=== PATIENT | female | born 1975 | race African-American/Black ===

== ENCOUNTER 2017-11-16 15:31 | Emergency (ER) | payer SELFPAY ==
[2017-11-16] MEDS: HYDROcodone/APAP 10/325 1 TAB TABLET PO ×2 (17:46)
== END 2017-11-16 18:27 | disposition home or self-care (01) ==
LOC: ER 15:31
DX: S16.1XXA Strain of muscle, fascia and tendon at neck level, initial encounter (principal); S20.222A Contusion of left back wall of thorax, initial encounter; S20.221A Contusion of right back wall of thorax, initial encounter; S80.02XA Contusion of left knee, initial encounter; E11.9 Type 2 diabetes mellitus without complications; I10 Essential (primary) hypertension; K21.9 Gastro-esophageal reflux disease without esophagitis; F12.10 Cannabis abuse, uncomplicated; Z88.8 Allergy status to other drugs, medicaments and biological substances; V43.52XA Car driver injured in collision with other type car in traffic accident, initial encounter; Y93.I9 Activity, other involving external motion; Y92.410 Unspecified street and highway as the place of occurrence of the external cause; Y99.8 Other external cause status
CPT/HCPCS: 72125; 72128; 73564; 99284-25

== ENCOUNTER 2018-12-09 21:30 | Emergency (ER) | payer OTHER ==
[~2018-12-09] VITALS: Ht 154.9 cm; Wt 106.6 kg
[~2018-12-09 21:30] MED LIST: AMLO10TA8 PO; CYCL10TA2 PO; CYCL5TAB PO; HYDR-3164 PO; IBUP-1007 PO; METF500T16 PO; SERT50TA8 PO; TRAZ-86 PO
--- NOTE | 2018-12-09 22:15 | PHYS DOC ---
Past Medical History Past Medical History: Diabetes-Type II, Hypertension, Other Additional Past Medical Histor: MULTIPLE ALLERGIC REACTIONS WITH FACIAL SWELLING Past Surgical History: Additional Past Surgical Histo: BREAST REDUCTION, SWEAT GLANDS REMOVED Alcohol Use: None Drug Use: Marijuana Social History Narrative: SMOKED MARIJUANA TODAY Adult General Chief Complaint Chief Complaint: ALLERGIC REACTION HPI HPI Patient is a 43 year old pleasant female who presents with facial swelling confined to the upper lip. Her airway is patent and she is breathing easily and able to hold a conversation and denies any shortness of breath or throat tightness. Pt reports taking xanoflex around 4-5 am (12/09/18), a pill she has never taken before, and started to notice lip "tingling" around 1230 p when she was driving her daughter to dance practice. It started to swell and pt took a benadryl with no relief. It is progressively swelling and is now becoming painful per pt, rating the pain a 7/10. She has had problems like this in the past to Lisinopril and carvedilol which responded to epinephrine, methylprednisone, and famotidine. She denies CP, SOA, n/v, DANG, cough, back pain , and bowel/bladder changes. She also notes her father experienced similar symptoms throughout his life. Review of Systems Review of Systems Constitutional: Denies fever or chills Eyes: Denies change in visual acuity, redness, or eye pain HENT: Denies nasal congestion or sore throat, admits to facial pain localized to upper lip. Respiratory: Denies cough or shortness of breath Cardiovascular: No additional information not addressed in HPI GI: Denies abdominal pain, nausea, vomiting, bloody stools or diarrhea : Denies dysuria or hematuria Musculoskeletal: Denies back pain or joint pain Integument: Denies rash or skin lesions Neurologic: Denies headache, focal weakness or sensory changes All other systems were reviewed and found to be within normal limits, except as documented in this note. Current Medications Current Medications Current Medications Medications (Trade) Dose Ordered Sig/Kim Start Time Stop Time Status Last Admin Dose Admin Amlodipine Besylate (Norvasc) 10 mg 1X ONCE 12/09/18 22:30 12/09/18 22:31 DC 12/09/18 22:32 10 MG Famotidine (Pepcid Vial) 20 mg 1X ONCE 12/09/18 22:30 12/09/18 22:31 DC 12/09/18 22:31 20 MG Methylprednisolone Sodium Succinate (SOLU-Medrol 125MG VIAL) 125 mg 1X ONCE 12/09/18 22:30 12/09/18 22:31 DC 12/09/18 22:31 125 MG Allergies Allergies Allergies Coded Allergies Type Severity Reaction Last Updated Verified SMITH Inhibitors Allergy Intermediate Swelling 03/16/16 Yes carvedilol Allergy Intermediate Swelling 03/16/16 Yes lisinopril Allergy Intermediate 03/16/16 Yes Physical Exam Physical Exam Constitutional: Well developed, well nourished, no acute distress, non-toxic appearance. Pleasant woman who can easily hold a conversation. HENT: Swelling localized to upper lip, no swelling appreciated in the lower lip , perioral region, or the face. Normocephalic, atraumatic, bilateral external ears normal, oropharynx moist, no oral exudates, nose normal. [] Eyes: PERRLA, EOMI, conjunctiva normal, no discharge. Neck: Normal range of motion, no tenderness, supple, no stridor. Cardiovascular:Heart rate regular rhythm, no murmur Lungs & Thorax: Bilateral breath sounds clear to auscultation. Able to move air easily. Abdomen: Bowel sounds normal, soft, no tenderness, no masses, no pulsatile masses. Skin: Warm, dry, no erythema, no rash. Back: No tenderness, no CVA tenderness. Extremities: No tenderness, no cyanosis, no clubbing, ROM intact, no edema. Neurologic: Alert and oriented X 3, normal motor function, normal sensory function, no focal deficits noted. Psychologic: Affect normal, judgement normal, mood normal. Current Patient Data Vital Signs Vital Signs Date Time Temp Pulse Resp B/P (MAP) Pulse Ox O2 Delivery O2 Flow Rate FiO2 12/09/18 23:40 82 16 158/102 (120) 100 Room Air 12/09/18 21:45 98.5 98.5 EKG EKG [] Radiology/Procedures Radiology/Procedures [] Course & Med Decision Making Course & Med Decision Making 43 yo pt with a known history of lip and facial swelling allergic reactions w/ out airway constriction or SOA presents with confined upper lip swelling. She reported taking a new drug this morning (xanoflex) and noticed the lip starting to swell around the afternoon. She took 4-8 benadryll since then without relief and it is progressively swelling. Her father also experienced similar symptoms throughout his life. In the emergency room the posterior oropharynx is normal the airways patent she is observed for a couple of hours possible mild decrease definitely not any worsening she remains calm and cooperative no respiratory distress at all. She was given prednisone burst Pepcid continue Benadryl and EpiPen prescription was provided in case of acute worsening. 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 She was advised to follow-up with primary care doctor consideration of allergy referral and further testing at this point time I think she is stable for outpatient management she lives right around the [place] and she was instructed on specific return precautions. Dragon Disclaimer Dragon Disclaimer This electronic medical record was generated, in whole or in part, using a voice recognition dictation system. Departure Departure Impression: Primary Impression: Angioedema Referrals: JACY RUBY JR, MD (PCP) Scripts Amlodipine Besylate (AMLODIPINE BESYLATE) 5 Mg Tablet 5 MG PO DAILY, #30 TAB Prov: ARCADIO HDEZ MD 12/09/18 Epinephrine (EPIPEN 2-DAVID) 0.3 Mg/0.3 Ml Auto.injct 0.3 MG IJ PRN PRN for ANAPHYLAXIS, #1 SYR 1 Refill Prov: ARCADIO HDEZ MD 12/09/18 Famotidine (PEPCID) 40 Mg Tablet 40 MG PO BID, #30 TAB Prov: ARCADIO HDEZ MD 12/09/18 Prednisone (PREDNISONE) 50 Mg Tablet 1 TAB PO DAILY, #5 TAB Prov: ARCADIO HDEZ MD 12/09/18 ARCADIO HDEZ MD Dec 09, 2018 22:15
[2018-12-09] MEDS ORDERED: methylPREDNISolone SOD SUCC PF 125 MG/2 ML VIAL. IV ONE (22:30)
[2018-12-09] MEDS ORDERED: FAMOTIDINE 20 MG/2 ML VIAL IVP ONE (22:30)
[2018-12-09] MEDS ORDERED: amLODIPine BESYLATE 5 MG TABLET PO ONE (22:30)
[2018-12-09] MEDS ORDERED: EPIPEN 2-P0.3 MG/0.3 IJ (22:44)
[2018-12-09] MEDS ORDERED: PRED50TA PO (22:44)
[2018-12-09] MEDS ORDERED: FAMO40TA57 PO (22:44)
[2018-12-09] MEDS ORDERED: AMLO5TAB10 PO (23:34)
[2018-12-09 23:40] VITALS: BP 158/102
== END 2018-12-09 23:47 | disposition home or self-care (01) ==
LOC: ER 21:30
DX: T78.3XXA Angioneurotic edema, initial encounter (principal); I10 Essential (primary) hypertension; E11.9 Type 2 diabetes mellitus without complications; Z88.8 Allergy status to other drugs, medicaments and biological substances
CPT/HCPCS: 96374; 96375; 99284; J2930; J3490

== ENCOUNTER 2021-12-08 03:54 | Emergency (ER) | payer SELFPAY ==
[~2021-12-08] VITALS: Ht 154.9 cm; Wt 116.7 kg
[~2021-12-08 03:54] MED LIST changes: +AMLO-186 PO; +AMLO-187 PO; -AMLO10TA8 PO; +CYCL10TA19 PO; -CYCL10TA2 PO; +EPIPEN 2-P0.3 MG/0.3 IJ; +FAMO40TA57 PO; +PRED50TA PO; +SERT-267 PO; -SERT50TA8 PO; +TRAZ-123 PO; -TRAZ-86 PO
[2021-12-08 04:00] VITALS: BP 154/100
[2021-12-08] MEDS ORDERED: LIDOCAINE/EPI/TETRACAINE TOPICAL GEL 3 ML. TP ONE (04:15)
--- NOTE | 2021-12-08 04:15 | PHYS DOC ---
Past Medical History Past Medical History: Diabetes-Type II, Hypertension, Other Additional Past Medical Histor: MULTIPLE ALLERGIC REACTIONS WITH FACIAL SWELLING Past Surgical History: Additional Past Surgical Histo: BREAST REDUCTION, SWEAT GLANDS REMOVED Smoking Status: Current Every Day Smoker Alcohol Use: None Drug Use: Marijuana General Adult HPI: HPI: Patient is a 46 year old female presents for evaluation of facial lacerations. Patient's was asleep states she fell out of bed and injured herself on the side table. Patient has 4 lacerations to the right side of her face. Patient also states she has some oral lacerations. Review of Systems: Review of Systems: Constitutional: Denies fever or chills. [] Eyes: Denies change in visual acuity. [] HENT: Denies nasal congestion or sore throat. [] Respiratory: Denies cough or shortness of breath. [] Cardiovascular: Denies chest pain or edema. [] GI: Denies abdominal pain, nausea, vomiting, bloody stools or diarrhea. [] : Denies dysuria. [] Musculoskeletal: Denies back pain or joint pain. [] Integument: Denies rash. [] positive laceration Neurologic: Denies headache, focal weakness or sensory changes. [] Endocrine: Denies polyuria or polydipsia. [] Lymphatic: Denies swollen glands. [] Psychiatric: Denies depression or anxiety. [] Heart Score: C/O Chest Pain: N/A Risk Factors: Risk Factors: DM, Current or recent (<one month) smoker, HTN, HLP, family history of CAD, obesity. Risk Scores: Score 0 - 3: 2.5% MACE over next 6 weeks - Discharge Home Score 4 - 6: 20.3% MACE over next 6 weeks - Admit for Clinical Observation Score 7 - 10: 72.7% MACE over next 6 weeks - Early Invasive Strategies Allergies: Allergies: Allergies Coded Allergies Type Severity Reaction Last Updated Verified SMITH Inhibitors Allergy Intermediate Swelling 03/16/16 Yes carvedilol Allergy Intermediate Swelling 03/16/16 Yes lisinopril Allergy Intermediate 03/16/16 Yes Physical Exam: PE: Constitutional: Well developed, well nourished, no acute distress, non-toxic appearance. [] HENT: Normocephalic, atraumatic, bilateral external ears normal, oropharynx moist, no oral exudates, nose normal. [] Eyes: PERRLA, EOMI, conjunctiva normal, no discharge. [] Neck: Normal range of motion, no tenderness, supple, no stridor. [] Cardiovascular:Heart rate regular rhythm, no murmur [] Lungs & Thorax: Bilateral breath sounds clear to auscultation [] Abdomen: Bowel sounds normal, soft, no tenderness, no masses, no pulsatile masses. [] Skin: Warm, dry, no erythema, no rash. [3 lacerations laceration varying lengths located on the face Laceration #1 1 cm right facial just lateral to the location of the canines Laceration #2 0.1 centimeters superior to the laceration #1 Laceration #3 3 cm right cheekbone] Back: No tenderness, no CVA tenderness. [] Extremities: No tenderness, no cyanosis, no clubbing, ROM intact, no edema. [] Neurologic: Alert and oriented X 3, normal motor function, normal sensory function, no focal deficits noted. [] Psychologic: Affect normal, judgement normal, mood normal. [] EKG: EKG: [] Radiology/Procedures: Radiology/Procedures: [] Course & Med Decision Making: Course & Med Decision Making Pertinent Labs and Imaging studies reviewed. (See chart for details) [] Patient was evaluated for chief complaint. Based upon history of present illness and physical exam no emergent lab or radiologic imaging ordered. Patient had a total of 3 lacerations and a puncture wound. Laceration #1 was approximately 1 cm in length right facial just lateral to the location of the canines. Anesthesia was achieved by let. Wound was cleaned with hydrogen peroxide Wound explored no foreign bodies identified 4 simple interrupted six-point 0 nylon sutures placed No complications Laceration #2 was 0.1 centimeters in length right facial just superior to laceration #1 Anesthesia achieved with let Wound cleaned with hydrogen peroxide This laceration was repaired with 1 simple interrupted six-point 0 nylon suture No complications Laceration #3 3 cm in length right cheek Anesthesia was achieved with let Wound cleaned with hydrogen peroxide This wound was repaired with Dermabond Puncture wound located lateral to laceration #2 Anesthesia was achieved with let Wound cleaned with hydrogen peroxide Pressure was applied but bleeding would not stop This wound was repaired with Dermabond Dragon Disclaimer: Flori Disclaimer: This electronic medical record was generated, in whole or in part, using a voice recognition dictation system. Departure Departure Impression: Primary Impression: Facial laceration Disposition: HOME / SELF CARE / HOMELESS Condition: STABLE Referrals: JACY RUBY JR, MD (PCP) Patient Instructions: Facial Laceration, Wound Care, [id number] Additional Instructions: Sutures out in 5-7 days. Scripts Hydrocodone/Acetaminophen (Hydrocodone-Acetamin 5-325 mg) 1 Each Tablet 1 EACH PO Q4-6HRS, #14 TAB Prov: NYLA SULLIVAN DO 12/08/21 NYLA SULLIVAN DO Dec 08, 2021 04:15
[2021-12-08] MEDS ORDERED: HYDR-2759 PO (05:20)
[2021-12-08] MEDS ORDERED: HYDROcodone/APAP 5/325MG 1 TAB TABLET PO ONE (05:30)
== END 2021-12-08 05:25 | disposition home or self-care (01) ==
LOC: ER 03:54
DX: S01.81XA Laceration without foreign body of other part of head, initial encounter (principal); E11.9 Type 2 diabetes mellitus without complications; I10 Essential (primary) hypertension; F17.200 Nicotine dependence, unspecified, uncomplicated; Z88.6 Allergy status to analgesic agent; Z88.8 Allergy status to other drugs, medicaments and biological substances; W06.XXXA Fall from bed, initial encounter; Y93.89 Activity, other specified; Y92.89 Other specified places as the place of occurrence of the external cause; Y99.8 Other external cause status
CPT/HCPCS: 12002; 99283